=== PATIENT | female | born 1940 | race Caucasian/White ===

== ENCOUNTER 2019-04-12 11:46 | Emergency (ER) | payer MEDICARE ==
--- NOTE | 2019-04-12 11:56 | EDM.PDOC ---
ED HPI GENERAL MEDICAL PROBLEM - General Chief Complaint: Upper Extremity Injury/Pain Stated Complaint: FELL ON ICE AND HURT ARM/SHOULDER Time Seen by Provider: 04/12/19 11:51 Source of Information: Reports: Patient History Limitations: Reports: No Limitations - History of Present Illness INITIAL COMMENTS - FREE TEXT/NARRATIVE: 78 YO WF presents to ER complaining of right shoulder pain after a slip and fall outside her home today. Pt reports she landed on her right side but denies head or neck injury or pain. Pt able to ambulate into ER without difficulty. Pt reports pain is directly to right shoulder, but radiates down her arm to just above her elbow. Pt able to pronate and supine her wrist and forearm without pain. Pt able to flex and extend elbow without difficulty. Pt denies any other injury. Onset: Today Location: Reports: Upper Extremity, Right Quality: Reports: Ache Severity: Mild Improves with: Reports: Rest Worsens with: Reports: Movement Context: Reports: Activity Associated Symptoms: Reports: No Other Symptoms Right Shoulder Pain Score (Numeric/FACES): 8 - Related Data Allergies Allergy/AdvReac Type Severity Reaction Status Date / Time cephalexin Allergy Joint Pain Verified 04/12/19 12:05 Penicillins Allergy Rash Verified 04/12/19 12:05 venlafaxine HCl Allergy Rash Verified 04/12/19 12:05 [From Effexor] Home Meds: Home Meds Latanoprost 1 drop EYEBOTH BEDTIME 11/13/15 [History] Losartan [Cozaar] 25 mg PO QPM 11/13/15 [History] Vitamin D3 2,000 units PO DAILY 11/13/15 [History] Propranolol [Inderal] 10 mg PO BID 04/12/19 [History] Sertraline [Zoloft] 50 mg PO DAILY 04/12/19 [History] traMADol [Ultram] 50 mg PO Q6H PRN #10 tab 04/12/19 [Rx] Past Medical History Cardiovascular History: Reports: Hypertension Psychiatric History: Reports: Anxiety, Depression Review of Systems - Review of Systems Review Of Systems: See Below Constitutional: Reports: No Symptoms Eyes: Reports: No Symptoms Ears: Reports: No Symptoms Nose: Reports: No Symptoms Mouth/Throat: Reports: No Symptoms Respiratory: Reports: No Symptoms Cardiovascular: Reports: No Symptoms GI/Abdominal: Reports: No Symptoms Genitourinary: Reports: No Symptoms Musculoskeletal: Reports: Shoulder Pain, Arm Pain. Denies: Neck Pain, Back Pain , Hand Pain, Leg Pain, Foot Pain Skin: Reports: No Symptoms Neurological: Reports: No Symptoms Psychiatric: Reports: No Symptoms ED EXAM, GENERAL - Physical Exam Exam: See Below Exam Limited By: No Limitations General Appearance: Alert, WD/WN, No Apparent Distress Head: Atraumatic, Normocephalic Neck: Normal Inspection, Supple, Non-Tender, Full Range of Motion Respiratory/Chest: No Respiratory Distress, Lungs Clear, Normal Breath Sounds, No Accessory Muscle Use, Chest Non-Tender Cardiovascular: Normal Peripheral Pulses, Regular Rate, Rhythm, No Edema, No Gallop, No JVD, No Murmur, No Rub GI/Abdominal: Normal Bowel Sounds, Soft, Non-Tender, No Organomegaly, No Distention, No Abnormal Bruit, No Mass Back Exam: Normal Inspection, Full Range of Motion, NT Extremities: No Pedal Edema, Normal Capillary Refill, Other (right head of humerus painful. right shoulder painful with ARM/PROM) Neurological: Alert, Oriented, CN II-XII Intact, Normal Cognition, Normal Gait, Normal Reflexes, No Motor/Sensory Deficits Psychiatric: Normal Affect, Normal Mood Skin Exam: Warm, Dry, Intact, Normal Color, No Rash Lymphatic: No Adenopathy ED TRAUMA EXTREMITY PROCEDURES - Splinting Right Upper Extremity Pre-Procedure NV Status: Normal Post-Procedure NV Status: Normal Splint Material: Sling Provider Post-Splint Application NV Check: NV Status Normal, Good Position Complications: No Course - Vital Signs Last Recorded V/S: Last Vital Signs Temp 37.2 C 04/12/19 11:59 Pulse 75 04/12/19 11:59 Resp 18 04/12/19 11:59 BP 184/93 H 04/12/19 11:59 Pulse Ox 95 04/12/19 11:59 - Orders/Labs/Meds Orders: Active Orders 24 hr Category Date Time Status Humerus Rt [CR] Stat Exams 04/12/19 11:55 Ordered Shoulder Comp Rt [CR] Stat Exams 04/12/19 11:55 Ordered - Radiology Interpretation Free Text/Narrative:: right shoulder- humeral neck fracture Departure - Departure Time of Disposition: 12:27 Disposition: Home, Self-Care 01 Condition: Good Clinical Impression: Proximal humeral fracture Qualifiers: Encounter type: initial encounter Fracture type: closed Fracture alignment: nondisplaced Laterality: right - Discharge Information Prescriptions: traMADol [Ultram] 50 mg PO Q6H PRN #10 tab PRN Reason: Pain Instructions: Humerus Fracture Treated With Immobilization, [id number] Forms: ED Department Discharge Additional Instructions: 1. discharge home 2. rest/ice/sling/motrin 400mg every 6 hours and tramadol every 6 hours as needed for pain 3. follow up with Dr Anabel Reis as soon as possible for further evaluation and treatment 4. return to ER for worsening symptoms Sepsis Event Note - Focused Exam Vital Signs: Vital Signs Temp Pulse Resp BP Pulse Ox 04/12/19 11:59 37.2 C 75 18 184/93 H 95 Date Exam was Performed: 04/12/19 Time Exam was Performed: 12:12 - My Orders Last 24 Hours: My Active Orders 04/12/19 11:55 Humerus Rt [CR] Stat Shoulder Comp Rt [CR] Stat - Assessment/Plan Last 24 Hours: My Active Orders 04/12/19 11:55 Humerus Rt [CR] Stat Shoulder Comp Rt [CR] Stat Assessment:: 1. right humeral head fracture Plan: 1. discharge home 2. rest/ice/sling/motrin 400mg every 6 hours and tramadol every 6 hours as needed for pain 3. follow up with Dr Anabel Reis as soon as possible for further evaluation and treatment 4. return to ER for worsening symptoms
[2019-04-12 12:05] VITALS: BP 184/93; PULSE 75
--- NOTE | 2019-04-12 12:30 | CR ---
[id number] RAD/RAD Shoulder Right 2V Min Exam: RAD Shoulder Right 2V Min Indication:FELL ON ICE, PAIN. Comparison: No prior imaging for comparison. Discussion: Acute nondisplaced mildly comminuted fracture of the proximal humerus. Fracture lines extend into the humeral head at the greater tuberosity. No evidence of a dislocation. No other fractures are identified. Mineralized material projects over the rotator cuff, possibly calcific tendinopathy. Impression: Acute comminuted nondisplaced minimally angulated fracture of the proximal humerus centered at the surgical neck extending into the humeral head and greater tuberosity. Vincent Bird MD 04/12/19 [id number] Thank you for allowing us to participate in the care of your patient.
== END 2019-04-12 13:00 | disposition home or self-care (01) ==
LOC: KA.ED 11:46
DX: S42.214A Unspecified nondisplaced fracture of surgical neck of right humerus, initial encounter for closed fracture (principal); W00.0XXA Fall on same level due to ice and snow, initial encounter; I10 Essential (primary) hypertension; F41.9 Anxiety disorder, unspecified; F32.9 Major depressive disorder, single episode, unspecified; Z88.1 Allergy status to other antibiotic agents; Z88.0 Allergy status to penicillin; Z88.8 Allergy status to other drugs, medicaments and biological substances; Z79.899 Other long term (current) drug therapy
CPT/HCPCS: 73030-RT; 99283; 99283-25

== ENCOUNTER 2020-06-07 10:47 | Emergency (ER) | payer MEDICARE ==
--- NOTE | 2020-06-07 11:10 | EDM.PDOC ---
ED HPI GENERAL MEDICAL PROBLEM - General Chief Complaint: Chest Pain Stated Complaint: CHEST PAIN Time Seen by Provider: 06/07/20 11:09 Source of Information: Reports: Patient History Limitations: Reports: No Limitations - History of Present Illness INITIAL COMMENTS - FREE TEXT/NARRATIVE: Melvina, 79-year-old female, presents to emergency department today for evaluation of chest pain with some radiation upwards to the left. She states this is been ongoing for quite some time, but today when she awoke, it was the most prominent that it had been in some time. She states it was possibly a 5 or 6 on a scale of 10. She did not take anything nor supplement anything with pain becoming very minimal as the morning progressed, and now is virtually gone with her presentation to the emergency department. She has history of high anxiety concerns with PRN anxiolytic, uses very seldom. States "Not liking to take medications." She has a past history of cardiac complaints which led to the initiation of a stress test via treadmill here in [place]. "During the procedure Dr. Diane Shepherd stopped the procedure and sent her to [place] for a non-treadmill test." She completed that and was not found to have any coronary artery disease of concern. She states she has had some occasional edema concerns that she had mentioned at the clinic but not did not have any change in treatment initiated. She states her ankles feet are always back to normal status upon awakening in the morning. She denies waking up during the night with any respiratory concerns or shortness of breath. She denies any recent illness, no change in diet or activity, and has not had any known COVID-19 exposures. She has had no fever chills, cough, or general malaise associated with those factors. Duration: Day(s):, Week(s): Location: Reports: Chest Left Chest Pain Score (Numeric/FACES): 6 - Related Data Allergies Allergy/AdvReac Type Severity Reaction Status Date / Time cephalexin Allergy Joint Pain Verified 06/07/20 11:08 Penicillins Allergy Rash Verified 06/07/20 11:08 venlafaxine HCl Allergy Rash Verified 06/07/20 11:08 [From Effexor] Home Meds: Home Meds Latanoprost 1 drop EYEBOTH BEDTIME 11/13/15 [History] Losartan [Cozaar] 25 mg PO QPM 11/13/15 [History] Vitamin D3 2,000 units PO DAILY 11/13/15 [History] Propranolol [Inderal] 10 mg PO BID 04/12/19 [History] Sertraline [Zoloft] 50 mg PO DAILY 04/12/19 [History] traMADol [Ultram] 50 mg PO Q6H PRN #10 tab 04/12/19 [Rx] Past Medical History HEENT History: Reports: Glaucoma Cardiovascular History: Reports: High Cholesterol, Hypertension Respiratory History: Reports: None Gastrointestinal History: Reports: GERD Psychiatric History: Reports: Anxiety, Depression Endocrine/Metabolic History: Reports: Other (See Below) (chronic hyponatremia) Dermatologic History: Reports: Other (See Below) (shingles tinea) Social & Family History - Family History Family Medical History: No Pertinent Family History - Tobacco Use Tobacco Use Status *Q: Former Tobacco User Tobacco Use Within Last Twelve Months: No Used Tobacco, but Quit: Yes - Caffeine Use Caffeine Use: Reports: None ED ROS GENERAL - Review of Systems Review Of Systems: Comprehensive ROS is negative, except as noted in HPI. ED EXAM, GENERAL - Physical Exam Exam: See Below Free Text/Narrative:: Alert, oriented, in no acute distress. There is no cyanosis nor pallor noted. HEENT is negative discharge or deformity. She has up plate in with no irritation, her lower bridge has not been placed today. She denies any discomfort with them. Her neck is soft and supple with no lymphadenopathy nor JVD. There is no carotid bruit auscultated. No rigidity appreciated. Thorax is clear throughout with no wheezes nor crackles. Cardiac is S1-S2 I do not appreciate any murmur. Occasional ectopic beat is appreciated with radial pulse correlating. Abdomen is soft bowel sounds are present no tenderness nor organomegaly appreciated. There is no erythema or edema to the thorax, no point tenderness. Lower extremities have +1 edema with skin warm and dry. #1 Interpretation EKG Date: 06/07/20 Time: 10:57 Rhythm: NSR Rate (Beats/Min): 66 ( PAC's) [place]: Normal P-Wave: Present QRS: Normal ST-T: Normal QT: Normal Comparison: NA - No Prior EKG (unable to view [facility] EKG) Course - Vital Signs Last Recorded V/S: Last Vital Signs Temp 97.5 F 06/07/20 14:00 Pulse 67 02/20/21 17:29 Resp 14 06/07/20 17:29 BP 140/73 06/07/20 17:29 Pulse Ox 98 06/07/20 17:29 - Orders/Labs/Meds Orders: Active Orders 24 hr Category Date Time Status EKG Documentation Completion [RC] ASDIRECTED Care 06/07/20 11:00 Active EKG 12 Lead [EK] Stat Ther 06/07/20 10:59 Ordered Labs: Laboratory Tests 06/07/20 06/07/20 06/07/20 Range/Units 11:10 11:10 11:10 WBC 3.51 L (5.00-10.00) 10^3/uL RBC 4.24 (3.80-5.50) 10^6/uL Hgb 12.8 (12.0-16.0) g/dL Hct 38.5 (37.0-47.0) % MCV 90.8 D (82.0-92.0) fL MCH 30.2 (27.0-31.0) pg MCHC 33.2 (32.0-36.0) g/dL RDW 12.7 (11.5-14.5) % Plt Count 242 (150-400) 10^3/uL MPV 10.2 (7.4-10.4) fL Sodium 135 L (136-145) mmol/L Potassium 3.8 (3.5-5.1) mmol/L Chloride 97 L (98-107) mmol/L Carbon Dioxide 31.7 (21.0-32.0) mmol/L Anion Gap 10.1 (5-15) mmol/L BUN 10 (7-18) mg/dL Creatinine 0.73 (0.51-1.17) mg/dL Est Cr Clr Drug Dosing 43.41 mL/min Estimated GFR (MDRD) > 60 mL/min Glucose 92 (70-140) mg/dL Calcium 9.2 (8.7-10.3) mg/dL Total Bilirubin 0.5 (0.2-1.0) mg/dL AST 20 (15-37) U/L ALT 23 (14-63) U/L Alkaline Phosphatase 101 (46-116) U/L CK-MB (CK-2) 0.57 (0.00-3.60) ng/mL Troponin I < 0.017 (0.000-0.056) ng/mL B-Natriuretic Peptide 85 (0-100) pg/mL Total Protein 6.9 (6.4-8.2) g/dL Albumin 3.71 (3.40-5.00) g/dL 06/07/20 Range/Units 17:10 WBC (5.00-10.00) 10^3/uL RBC (3.80-5.50) 10^6/uL Hgb (12.0-16.0) g/dL Hct (37.0-47.0) % MCV (82.0-92.0) fL MCH (27.0-31.0) pg MCHC (32.0-36.0) g/dL RDW (11.5-14.5) % Plt Count (150-400) 10^3/uL MPV (7.4-10.4) fL Sodium (136-145) mmol/L Potassium (3.5-5.1) mmol/L Chloride (98-107) mmol/L Carbon Dioxide (21.0-32.0) mmol/L Anion Gap (5-15) mmol/L BUN (7-18) mg/dL Creatinine (0.51-1.17) mg/dL Est Cr Clr Drug Dosing mL/min Estimated GFR (MDRD) mL/min Glucose (70-140) mg/dL Calcium (8.7-10.3) mg/dL Total Bilirubin (0.2-1.0) mg/dL AST (15-37) U/L ALT (14-63) U/L Alkaline Phosphatase (46-116) U/L CK-MB (CK-2) (0.00-3.60) ng/mL Troponin I < 0.017 (0.000-0.056) ng/mL B-Natriuretic Peptide (0-100) pg/mL Total Protein (6.4-8.2) g/dL Albumin (3.40-5.00) g/dL Meds: Medications Discontinued Medications Generic Name Dose Route Start Last Admin Trade Name Freq PRN Reason Stop Dose Admin Alprazolam 0.125 mg 06/07/20 13:07 06/07/20 13:24 Xanax PO 06/07/20 13:08 0.125 mg NOW ONE Administration - Re-Assessments/Exams Free Text/Narrative Re-Assessment/Exam: 06/07/20 12:58 Discussed all of the negative, or normal findings of her work-up here today. She questions why she still has a slight feeling in her chest. I discussed in detail with Rajeev Quintero situation and findings with both of us agreeing that there is no pertinent findings for admission per Medicare standards at this time. We do both agree that we could keep her as an extended ER with a repeat troponin in 6 hours. If that test was negative we could safely say she has ruled out completely since the event of the discomfort has been ongoing for days if not weeks. In the event testing was positive consideration for admission observation versus acute or consultation with cardiology services would be given. We explained this to Melvina who is in agreements to spend the afternoon here with a repeat troponin post 6-hour test. Free Text/Narrative Re-Assessment/Exam: 06/07/20 17:37 Has rested comfortably taking a very good nap and states she is feeling well at this time. Lungs are clear no distress no discomfort acknowledged. Heart rate is maintained as well as blood pressure throughout this extended emergency department stay. Departure - Departure Time of Disposition: 17:47 Disposition: Home, Self-Care 01 Condition: Good Clinical Impression: Anxiety, Atypical chest pain, Chronic leukopenia HTN (hypertension) Qualifiers: Hypertension type: essential hypertension Qualified Code(s): I10 - Essential (primary) hypertension - Discharge Information *PRESCRIPTION DRUG MONITORING PROGRAM REVIEWED*: Not Applicable *COPY OF PRESCRIPTION DRUG MONITORING REPORT IN PATIENT JIHAN: Not Applicable Instructions: Nonspecific Chest Pain, Adult Referrals: Hope Pope NP [Primary Care Provider] - Forms: ED Department Discharge Additional Instructions: Testing today as proven negative for heart involvement. Your chest x-ray as well as lab work of ruled out any evidence of congestive heart failure. You need to follow-up with your clinic to discuss with your provider the potential for changing your anxiety medicine. It may be that dosing adjustment or the actual change of medication considering the time you have been taking it and the fact you are still experiencing some anxiety would be beneficial. Continue all of your medications as directed at this time. You may take your Xanax at bedtime like you previously have to assist with your sleep as well as reduction of anxiety to allow you to better sleep. Call or return to the emergency department if concerns develop over the weekend, and call the clinic Tuesday, to arrange an appointment in the upcoming week to discuss your medications as well as the event this weekend. Sepsis Event Note (ED) - Evaluation Sepsis Screening Result: No Definite Risk - Focused Exam Vital Signs: Vital Signs Temp Pulse Resp BP Pulse Ox 06/07/20 17:29 67 14 140/73 98 06/07/20 14:00 97.5 F 70 16 144/75 H 95 06/07/20 11:52 91 14 163/83 H 97 06/07/20 11:04 96.7 F L 93 16 167/89 H 95 - Problem List & Annotations (1) Atypical chest pain SNOMED Code(s): 097070284 Code(s): R07.89 - OTHER CHEST PAIN Status: Acute Priority: High Current Visit: Yes (2) Anxiety SNOMED Code(s): 04773889 Code(s): F41.9 - ANXIETY DISORDER, UNSPECIFIED Status: Chronic Priority: Medium Current Visit: Yes (3) Hypochloremia SNOMED Code(s): 06678122 Code(s): E87.8 - OTH DISORDERS OF ELECTROLYTE AND FLUID BALANCE, NEC Status: Chronic Priority: Medium Current Visit: Yes (4) Chronic leukopenia SNOMED Code(s): 11809097 Code(s): D72.819 - DECREASED WHITE BLOOD CELL COUNT, UNSPECIFIED Status: Chronic Priority: Medium Current Visit: Yes - Problem List Review Problem List Initiated/Reviewed/Updated: Yes - My Orders Last 24 Hours: My Active Orders 06/07/20 10:59 EKG 12 Lead [EK] Stat 06/07/20 11:00 EKG Documentation Completion [RC] ASDIRECTED - Assessment/Plan Last 24 Hours: My Active Orders 06/07/20 10:59 EKG 12 Lead [EK] Stat 06/07/20 11:00 EKG Documentation Completion [RC] ASDIRECTED Plan: Testing today as proven negative for heart involvement. Your chest x-ray as well as lab work of ruled out any evidence of congestive heart failure. You need to follow-up with your clinic to discuss with your provider the potential for changing your anxiety medicine. It may be that dosing adjustment or the actual change of medication considering the time you have been taking it and the fact you are still experiencing some anxiety would be beneficial. Continue all of your medications as directed at this time. You may take your Xanax at bedtime like you previously have to assist with your sleep as well as reduction of anxiety to allow you to better sleep. Call or return to the emergency department if concerns develop over the weekend, and call the clinic Tuesday, to arrange an appointment in the upcoming week to discuss your medications as well as the event this weekend.
[2020-06-07 11:45] LABS: ANION GAP 10.1 mmol/L (5-15); CHLORIDE,CL 97 mmol/L (98-107); SODIUM,NA 135 mmol/L (136-145)
--- NOTE | 2020-06-07 11:48 | CR ---
[id number] RAD/RAD Chest PA And Lateral EXAM: RAD Chest PA And Lateral INDICATION: CHEST PAIN. COMPARISON: May 24, 2009. DISCUSSION: Cardiomediastinal silhouette is stable in size and contour. No infiltrate, effusion, pneumothorax, or edema. Pulmonary hyperinflation. IMPRESSION: No acute cardiopulmonary abnormality. George Valles DO 06/07/20 1147 Thank you for allowing us to participate in the care of your patient.
[2020-06-07] MEDS: ALPRAZolam 0.25 MG Tab PO ONE (13:24)
[2020-06-07 17:29] VITALS: BP 140/73; PULSE 67
== END 2020-06-07 18:00 | disposition home or self-care (01) ==
LOC: KA.ED 10:47
DX: F41.9 Anxiety disorder, unspecified (principal); D72.819 Decreased white blood cell count, unspecified; I10 Essential (primary) hypertension; Z79.899 Other long term (current) drug therapy; Z87.891 Personal history of nicotine dependence; Z88.1 Allergy status to other antibiotic agents; Z88.0 Allergy status to penicillin; Z88.8 Allergy status to other drugs, medicaments and biological substances
CPT/HCPCS: 36415; 71046; 80053; 82553; 83880; 84484; 85027; 93005; 99284; 99285-25; A9270-GY

== ENCOUNTER 2020-12-11 19:55 | Emergency (ER) | payer MEDICARE ==
[2020-12-11] MEDS ORDERED: Acetaminophen 500 MG Tab PO ONE (20:59)
[2020-12-11 21:00] LABS: ANION GAP 13.1 mmol/L (5-15); CHLORIDE,CL 97 mmol/L (98-107); SODIUM,NA 137 mmol/L (136-145)
[2020-12-11] MEDS ORDERED: ALPRAZolam 0.25 MG Tab PO ONE (21:20)
--- NOTE | 2020-12-11 21:52 | EDM.PDOC ---
ED HPI GENERAL MEDICAL PROBLEM - General Chief Complaint: General Stated Complaint: hypertension, dizziness Time Seen by Provider: 12/11/20 20:15 Source of Information: Reports: Patient History Limitations: Reports: No Limitations - History of Present Illness INITIAL COMMENTS - FREE TEXT/NARRATIVE: 80-year-old female presents emergency room with complaints of elevated blood pressure and mild headache. Her symptoms began this evening. Her blood pressure has been elevated over the last couple weeks. She was seen by Natalia Zepeda nurse practitioner yesterday for blood pressure check. Her losartan 25 mg was increased to 50 mg daily and was asked to follow-up in 2 weeks. Patient was on hydrochlorothiazide previously and stopped this on her own. Not like the side effects of frequent urination. She did discuss this with her primary care at her last months visit. They elected to increase her losartan yesterday as her blood pressures were elevating. In addition she has a history of anxiety and decided also quit her Xanax. Family member that accompanies her states that she does have quite frequent anxiety. She is not currently experiencing any chest pain or shortness of breath. She just took her losartan this evening about an hour prior to her arrival. He was taking her blood pressures at home checking it every 5 minutes. She became concerned when she had a blood pressure reading 200/100. She now presents to the emergency room. She states that she has been having some in addition frequency urination with we will check her urine today to make sure that there is no underlying a UTI. She denies any visual changes no history of a kidney disease. No history of stroke. No previous IN. Onset: Gradual, Unknown/Unsure Duration: Getting Worse Location: Reports: Head Quality: Reports: Ache Severity: Mild Improves with: Reports: None Treatments SECTION BEAMER: Reports: Acetaminophen - Related Data Allergies Allergy/AdvReac Type Severity Reaction Status Date / Time cephalexin Allergy Joint Pain Verified 12/11/20 20:06 Penicillins Allergy Rash Verified 12/11/20 20:06 venlafaxine HCl Allergy Rash Verified 12/11/20 20:06 [From Effexor] Home Meds: Home Meds Losartan [Cozaar] 50 mg PO QPM 11/13/15 [History] Vitamin D3 2,000 units PO DAILY 11/13/15 [History] Sertraline [Zoloft] 50 mg PO DAILY 04/12/19 [History] Acetaminophen 325 mg PO Q4H PRN 12/11/20 [History] Docusate Sodium [Colace] 100 mg PO BEDTIME PRN 12/11/20 [History] Ibuprofen 200 mg PO Q4H PRN 12/11/20 [History] Ketoconazole [Ketoconazole 2%] 1 applic TOP DAILY PRN 12/11/20 [History] Multivitamin [Multiple Vitamins] 2 each PO DAILY 12/11/20 [History] Vit C/E/Zn/Coppr/Lutein/Zeaxan [Preservision Areds 2 Softgel] 1 each PO DAILY 12/11/20 [History] Past Medical History HEENT History: Reports: Glaucoma Cardiovascular History: Reports: High Cholesterol, Hypertension Respiratory History: Reports: None Gastrointestinal History: Reports: GERD Psychiatric History: Reports: Anxiety, Depression Endocrine/Metabolic History: Reports: Other (See Below) (chronic hyponatremia) Dermatologic History: Reports: Other (See Below) (shingles tinea) Social & Family History - Family History Family Medical History: No Pertinent Family History - Tobacco Use Tobacco Use Status *Q: Former Tobacco User Used Tobacco, but Quit: No - Caffeine Use Caffeine Use: Reports: None - Recreational Drug Use Recreational Drug Use: No ED ROS GENERAL - Review of Systems Review Of Systems: See Below Constitutional: Reports: No Symptoms. Denies: Diaphoresis HEENT: Reports: Glasses. Denies: Vertigo, Vision Change Respiratory: Denies: Shortness of Breath Cardiovascular: Reports: Blood Pressure Problem, Lightheadedness. Denies: Chest Pain, Dyspnea on Exertion, Edema, Palpitations, Syncope Endocrine: Reports: No Symptoms GI/Abdominal: Reports: No Symptoms : Reports: Frequency. Denies: Dysuria, Hematuria Musculoskeletal: Reports: No Symptoms Skin: Reports: No Symptoms Neurological: Reports: Dizziness, Headache. Denies: Numbness, Paresthesia, Syncope, Trouble Speaking, Difficulty Walking, Weakness, Change in Speech, Gait Disturbance Psychiatric: Reports: Anxiety Hematologic/Lymphatic: Reports: No Symptoms Immunologic: Reports: No Symptoms ED EXAM, GENERAL - Physical Exam Exam: See Below Exam Limited By: No Limitations General Appearance: Alert, No Apparent Distress, Thin Eye Exam: Bilateral Eye: EOMI, PERRL Ears: Hearing Grossly Normal Nose: Normal Inspection Throat/Mouth: Normal Inspection, Normal Oropharynx, Normal Voice, No Airway Co mpromise Head: Atraumatic, Normocephalic Neck: Normal Inspection, Supple, Non-Tender, Full Range of Motion Respiratory/Chest: No Respiratory Distress, Lungs Clear, Normal Breath Sounds, No Accessory Muscle Use, Chest Non-Tender Cardiovascular: Regular Rate, Rhythm, No Murmur Peripheral Pulses: 2+: Carotid (L), Carotid (R), Radial (L), Radial (R), Dorsalis Pedis (L), Dorsalis Pedis (R) GI/Abdominal: Soft, Non-Tender Back Exam: Normal Inspection, Full Range of Motion Extremities: Normal Inspection, Normal Range of Motion, Non-Tender, No Pedal Edema Neurological: Alert, Oriented, CN II-XII Intact, Normal Cognition, No Motor/Sensory Deficits Psychiatric: Normal Affect, Anxious Skin Exam: Warm, Dry, Intact, Normal Color, No Rash Lymphatic: No Adenopathy #1 Interpretation EKG Date: 12/11/20 Time: 20:40 Rhythm: Other (Decelerated junctional rhythm) Rate (Beats/Min): 74 [place]: Normal P-Wave: Present QRS: Normal ST-T: Normal QT: Normal Comparison: NA - No Prior EKG EKG Interpretation Comments: Accelerated junctional rhythm Anterior infarct age undetermined Abnormal ECG Course - Vital Signs Last Recorded V/S: Last Vital Signs Temp 97.2 F 12/11/20 20:00 Pulse 78 12/11/20 20:00 Resp 20 12/11/20 20:00 BP 203/99 H 12/11/20 20:00 Pulse Ox 95 12/11/20 20:00 - Orders/Labs/Meds Orders: Active Orders 24 hr Category Date Time Status EKG 12 Lead [EK] Stat Ther 12/11/20 20:26 Ordered Labs: Laboratory Tests 12/11/20 12/11/20 12/11/20 Range/Units 20:35 20:35 21:20 Sodium 137 (136-145) mmol/L Potassium 4.3 (3.5-5.1) mmol/L Chloride 97 L (98-107) mmol/L Carbon Dioxide 31.2 (21.0-32.0) mmol/L Anion Gap 13.1 (5-15) mmol/L BUN 18 (7-18) mg/dL Creatinine 0.85 (0.51-1.17) mg/dL Est Cr Clr Drug Dosing TNP Estimated GFR (MDRD) > 60 mL/min Glucose 94 (70-140) mg/dL Calcium 8.7 (8.7-10.3) mg/dL Troponin I High Sens 7.700 (0-51.000) pg/mL Specimen Type Urincc Urine Color Yellow (YELLOW) Urine Appearance Clear (CLEAR) Urine pH 7.0 (5.0-9.0) Ur Specific [place] 1.015 (1.005-1.030) Urine Protein Negative (NEGATIVE) mg/dL Urine Glucose (UA) Negative (NEGATIVE) mg/dL Urine Ketones Negative (NEGATIVE) mg/dL Urine Occult Blood Negative (NEGATIVE) Urine Nitrite Negative (NEGATIVE) Urine Bilirubin Negative (NEGATIVE) Urine Urobilinogen 0.2 (0.2-1.0) E.U./dL Ur Leukocyte Esterase Small H (NEGATIVE) Urine RBC 0-5 (0-5) /HPF Urine WBC 0-5 (0-5) /HPF Ur Epithelial Cells Rare /LPF Urine Bacteria Not seen (NONE TO FEW) /HPF Meds: Medications Discontinued Medications Generic Name Dose Route Start Last Admin Trade Name Coleen PRN Reason Stop Dose Admin Acetaminophen 1,000 mg 12/11/20 20:59 12/11/20 21:25 Acetaminophen 500 Mg Tab PO 12/11/20 21:00 500 mg ONETIME ONE Administration Alprazolam 0.5 mg 12/11/20 21:20 12/11/20 21:25 Alprazolam 0.25 Mg Tab PO 12/11/20 21:21 0.5 mg ONETIME ONE Administration - Re-Assessments/Exams Free Text/Narrative Re-Assessment/Exam: 12/11/20 21:56 Room was lighting was lowered. Patient was talkative mildly anxious. She is in no acute distress. Not experiencing any chest pain or shortness of breath. She was given 500 mg of Tylenol for headache. She was given 0.5 mg Xanax and relaxing in exam room 1 trauma. Departure - Departure Time of Disposition: 22:46 Disposition: Home, Self-Care 01 Condition: Good Clinical Impression: Elevated blood pressure reading in office with diagnosis of hypertension, Anxiety, Noncompliance with medication regimen - Discharge Information Instructions: Hypertension, Adult, [id number], Managing Anxiety, Adult, Managing Your Hypertension Referrals: Natalia Medrano NP [Primary Care Provider] - Forms: ED Department Discharge Care Plan Goals: 1. Continue with your prescribed medications as ordered by your doctor. 2. Adjusting your blood pressure with new medication can sometimes take up to 2 weeks to show improvements. I would avoid checking your blood pressures multiple times a day. 3. I would discuss with your primary care about feeling anxious as you have recently discontinued the Xanax.. 4. I would call your primary care tomorrow and let them know that you were seen in the emergency room for elevated blood pressure which came down nicely with relaxation techniques. Blood pressure is currently 135/67 and I would not add or change anything currently to your hypertension medications. 5. If episodes of severe headache, visual changes, changes in speech or difficulty talking, drooping of the face, weakness in any extremity, chest pain, shortness of breath, jaw pain, nausea or vomiting associated with the above- mentioned or back pain I would encourage you to follow back to the emergency room for further work-up and evaluation. Sepsis Event Note (ED) - Evaluation Sepsis Screening Result: No Definite Risk - Focused Exam Vital Signs: Vital Signs Temp Pulse Resp BP Pulse Ox 12/11/20 20:00 97.2 F 78 20 203/99 H 95 - My Orders Last 24 Hours: My Active Orders 12/11/20 20:26 EKG 12 Lead [EK] Stat - Assessment/Plan Last 24 Hours: My Active Orders 12/11/20 20:26 EKG 12 Lead [EK] Stat Assessment:: Hypertension with previous noncompliance with abruptly stopping her hydrochlorothiazide. Elevated blood pressure losartan was increased to 50 mg daily Anxiety, recently stopped Xanax Plan: 1. Patient had her losartan increased to 50 mg daily just 24 hours ago. We discussed the importance of allowing the medication change to take effect. Recommend not repeating blood pressure checks multiple times throughout the day as it is less likely will create anxiousness and elevation of blood pressure. 2. Mild headache improved with Tylenol. 3. Recommend informing your primary care you were seen in the emergency room yesterday for blood pressure elevation keep your current follow-up with your primary care and continue with compliance of medication. 4. Change in symptoms to severe headache, chest pain, shortness of breath, abdominal pain, change in speech, weakness you should return to the emergency room immediately for further work-up and evaluation. 5. Your lab work BMP and troponin are normal. Blood pressures come down nicely in the ER.
[2020-12-12 01:50] VITALS: BP 139/76; PULSE 61
== END 2020-12-11 22:58 | disposition home or self-care (01) ==
LOC: KA.ED 19:55
DX: I10 Essential (primary) hypertension (principal); F41.9 Anxiety disorder, unspecified; Z91.19 Patient's noncompliance with other medical treatment and regimen; E78.00 Pure hypercholesterolemia, unspecified; K21.9 Gastro-esophageal reflux disease without esophagitis; Z88.0 Allergy status to penicillin; Z88.1 Allergy status to other antibiotic agents; Z87.891 Personal history of nicotine dependence; Z79.899 Other long term (current) drug therapy
CPT/HCPCS: 36415; 80048; 81001; 84484; 93005; 99284; A9270

== ENCOUNTER 2021-01-13 15:07 | Emergency (ER) | payer MEDICARE ==
[2021-01-13 15:24] VITALS: BP 164/83; PULSE 106
--- NOTE | 2021-01-13 16:17 | EDM.PDOC ---
ED HPI GENERAL MEDICAL PROBLEM - General Chief Complaint: Genitourinary Problem Stated Complaint: BLOOD IN URINE Time Seen by Provider: 01/13/21 16:00 Source of Information: Reports: Patient History Limitations: Reports: No Limitations - History of Present Illness INITIAL COMMENTS - FREE TEXT/NARRATIVE: Melvina, 80-year-old female, presents today with hematuria. She states that she awoke this morning feeling fine yielding a history of hematuria in the past 2 weeks where she was seen by her provider Hope Pope at the [facility] here in [place]. At that time there was a discussion over having urology consult which was declined by her at that time. She did a typical of the day yesterday and last night awakening this morning feeling fine then suddenly experiencing painless hematuria. She pushed fluids did not seem to make any benefit and presents this afternoon as she became concerned that it was not typical for her. She notes that it is been scheduled for an appointment tomorrow morning at 730 with Hope and is advised to continue that plan as she likely needs urology consult. She denies any symptoms such as lightheadedness dizziness palpitations or ma laise. She states she is concerned as it is recurred again. Onset: Today, Sudden Duration: Hour(s): Location: Reports: Pelvis - Related Data Allergies Allergy/AdvReac Type Severity Reaction Status Date / Time cephalexin Allergy Joint Pain Verified 01/13/21 18:01 Penicillins Allergy Rash Verified 01/13/21 18:01 venlafaxine HCl Allergy Rash Verified 01/13/21 18:01 [From Effexor] Home Meds: Home Meds Losartan [Cozaar] 50 mg PO QPM 11/13/15 [History] Vitamin D3 2,000 units PO DAILY 11/13/15 [History] Sertraline [Zoloft] 50 mg PO DAILY 04/12/19 [History] Acetaminophen 325 mg PO Q4H PRN 12/11/20 [History] Docusate Sodium [Colace] 100 mg PO BEDTIME PRN 12/11/20 [History] Ibuprofen 200 mg PO Q4H PRN 12/11/20 [History] Ketoconazole [Ketoconazole 2%] 1 applic TOP DAILY PRN 12/11/20 [History] Multivitamin [Multiple Vitamins] 2 each PO DAILY 12/11/20 [History] Vit C/E/Zn/Coppr/Lutein/Zeaxan [Preservision Areds 2 Softgel] 1 each PO DAILY 12/11/20 [History] Past Medical History HEENT History: Reports: Glaucoma Cardiovascular History: Reports: High Cholesterol, Hypertension Other Cardiovascular History: ectopic atrial rhythm Respiratory History: Reports: None Gastrointestinal History: Reports: GERD Other Gastrointestinal History: slow transit constipation Other Genitourinary History: pseudomonas UTI ASSISTANT DIRECTOR OF ADMISSIONS History: Reports: Other ASSISTANT DIRECTOR OF ADMISSIONS History: vaginal prolapse without uterine prolapse Musculoskeletal History: Reports: Back Pain, Chronic, Fracture Other Musculoskeletal History: closed fracture of head of right humerus (2019) Psychiatric History: Reports: Anxiety, Depression Endocrine/Metabolic History: Reports: Vitamin D Deficiency, Other (See Below) Other Endocrine/Metabolic History: Chronic hyponatremia Other Hematologic History: leukopenia (02/11/20) Oncologic (Cancer) History: Reports: Breast Dermatologic History: Reports: Other (See Below) Other Dermatologic History: tinea capitis - Infectious Disease History Infectious Disease History: Reports: Chicken Pox, Measles, Mumps, Novel Coronavirus, Shingles Other Infectious Disease History: Covid (2019). disseminated herpes zoster - Past Surgical History GI Surgical History: Reports: Appendectomy Female Surgical History: Reports: Hysterectomy Musculoskeletal Surgical History: Reports: Arthroscopic Knee Other Musculoskeletal Surgeries/Procedures:: 2011 - right knee arthroscopy Oncologic Surgical History: Reports: Lumpectomy Other Oncologic Surgeries/Procedures: right breast lumpectomy () Social & Family History - Family History Family Medical History: No Pertinent Family History - Tobacco Use Tobacco Use Status *Q: Never Tobacco User - Caffeine Use Caffeine Use: Reports: None - Recreational Drug Use Recreational Drug Use: No ED ROS GENERAL - Review of Systems Review Of Systems: Comprehensive ROS is negative, except as noted in HPI. ED EXAM, GENERAL - Physical Exam Exam: See Below Free Text/Narrative:: Alert oriented in no acute distress. HEENT is negative discharge or deformity. [place] moist mucous membranes Thorax is clear Cardiac regular No flank pain abdominal pain or pelvic pressure to palpation. She is somewhat hesitant with no urge to void and we wait roughly half hour to get urine sample. She is comfortable throughout the stay has no increase in her urination desire with no fullness nor difficulty encountered. Course - Vital Signs Last Recorded V/S: Last Vital Signs Temp 98.8 F 01/13/21 15:23 Pulse 106 H 01/13/21 15:23 Resp 16 01/13/21 15:23 BP 164/83 H 01/13/21 15:23 Pulse Ox 93 L 01/13/21 15:23 - Orders/Labs/Meds Labs: Laboratory Tests 01/13/21 Range/Units 15:40 Specimen Type Urincc Urine Color Red H (YELLOW) Urine Appearance Turbid H (CLEAR) Urine pH 6.0 (5.0-9.0) Ur Specific [place] 1.025 (1.005-1.030) Urine Protein >=300 H (NEGATIVE) mg/dL Urine Glucose (UA) Negative (NEGATIVE) mg/dL Urine Ketones Negative (NEGATIVE) mg/dL Urine Occult Blood Large H (NEGATIVE) Urine Nitrite Negative (NEGATIVE) Urine Bilirubin Negative (NEGATIVE) Urine Urobilinogen 0.2 (0.2-1.0) E.U./dL Ur Leukocyte Esterase Negative (NEGATIVE) Urine RBC Packed (0-5) /HPF Urine WBC 0-5 (0-5) /HPF Ur Epithelial Cells Few /LPF Urine Bacteria Few (NONE TO FEW) /HPF Urine Mucus Few H (NEGATIVE) /LPF - Re-Assessments/Exams Free Text/Narrative Re-Assessment/Exam: 01/13/21 20:19 I had a very thorough discussion with Melvina any aspects of painless hematuria that she needs to undergo a cystoscopy to see if there is a bladder polyp or lesion that is causing the bleeding. She states that this had been offered originally which she felt hesitant as she would have to leave town for the procedure. I do express my concern that this should not be avoided as there needs to be a conclusive test and answer obtained from it such as cystoscopy would likely provide. She does understand and agree with that and well follow-up tomorrow morning as scheduled with Hope Pope in the clinic. Departure - Departure Time of Disposition: 17:42 Disposition: Home, Self-Care 01 Condition: Good Clinical Impression: Hematuria - Discharge Information *PRESCRIPTION DRUG MONITORING PROGRAM REVIEWED*: Not Applicable *COPY OF PRESCRIPTION DRUG MONITORING REPORT IN PATIENT JIHAN: Not Applicable Referrals: Hope Pope, [employer] [Primary Care Provider] - Forms: ED Department Discharge Additional Instructions: You have blood in your urine with no evidence of infection. Make sure you drink as much water as possible tonight to keep clots from forming in your bladder. Continue all your medications as directed. Follow-up in the morning with the niece as scheduled as you will need a consult/referral to the urologist to undergo a cystoscopy. It is possible that you have a bladder polyp or a bladder cyst that is causing the bleeding. Make sure to stay well-hydrated Sepsis Event Note (ED) - Evaluation Sepsis Screening Result: No Definite Risk - Focused Exam Vital Signs: Vital Signs Temp Pulse Resp BP Pulse Ox 01/13/21 15:23 98.8 F 106 H 16 164/83 H 93 L - Problem List & Annotations (1) Hematuria SNOMED Code(s): 71663956 Code(s): R31.9 - HEMATURIA, UNSPECIFIED Status: Acute Priority: High Qualifiers: Hematuria type: unspecified type Qualified Code(s): R31.9 - Hematuria, unspecified - Problem List Review Problem List Initiated/Reviewed/Updated: Yes - Assessment/Plan Plan: You have blood in your urine with no evidence of infection. Make sure you drink as much water as possible tonight to keep clots from forming in your bladder. Continue all your medications as directed. Follow-up in the morning with Hope as scheduled as you will need a consult/referral to the urologist to undergo a cystoscopy. It is possible that you have a bladder polyp or a bladder cyst that is causing the bleeding. Make sure to stay well-hydrated.
== END 2021-01-13 17:55 | disposition home or self-care (01) ==
LOC: KA.ED 15:07
DX: R31.9 Hematuria, unspecified (principal); I10 Essential (primary) hypertension; Z88.1 Allergy status to other antibiotic agents; Z88.0 Allergy status to penicillin; Z88.8 Allergy status to other drugs, medicaments and biological substances; Z79.899 Other long term (current) drug therapy
CPT/HCPCS: 81001; 99283; 99284

== ENCOUNTER 2021-08-22 17:34 | Emergency (ER) | payer MEDICARE ==
[2021-08-22 18:02] VITALS: BP 119/89; PULSE 99
[2021-08-22] MEDS ORDERED: Azithromycin 250 MG Tab PO ONE (18:31)
== END 2021-08-22 18:50 | disposition home or self-care (01) ==
LOC: KA.ED 17:34
DX: L08.9 Local infection of the skin and subcutaneous tissue, unspecified (principal); I10 Essential (primary) hypertension; Z86.16 Personal history of COVID-19; Z90.49 Acquired absence of other specified parts of digestive tract; Z90.710 Acquired absence of both cervix and uterus; Z79.899 Other long term (current) drug therapy; Z88.0 Allergy status to penicillin; Z88.1 Allergy status to other antibiotic agents; Z88.8 Allergy status to other drugs, medicaments and biological substances
CPT/HCPCS: 99282; 99284; A9270-GY

== ENCOUNTER 2023-06-15 08:07 | Emergency (ER) | payer MEDICARE ==
[2023-06-15] MEDS ORDERED: Sodium Chloride 0.9% 10 ML Syringe FLUSH PRN (08:15)
[2023-06-15 08:20] VITALS: PULSE 78
[2023-06-15 08:28] LABS: BASOPHILS ABSOLUTE AUTO 0.03 10^3/uL (0.00-0.10); BASOPHILS PERCENT AUTO 0.7 % (0.0-1.0); EOSINOPHILS ABSOLUTE AUTO 0.12 10^3/uL (0.10-0.30); EOSINOPHILS PERCENT AUTO 2.8 % (1.0-3.0); HEMATOCRIT 43.3 % (37.0-47.0); HEMOGLOBIN 14.2 g/dL (12.0-16.0); LYMPHOCYTES ABSOLUTE AUTO 1.68 10^3/uL (1.00-4.00); LYMPHOCYTES PERCENT AUTO 38.7 % (20.0-40.0); MEAN CORPUSCULAR HEMOGLOBIN 28.7 pg (27.0-31.0); MEAN CORPUSCULAR HGB CONC 32.8 g/dL (32.0-36.0); MEAN CORPUSCULAR VOLUME 87.5 fL (82.0-92.0); MEAN PLATELET VOLUME 10.1 fL (7.4-10.4); MONOCYTES ABSOLUTE AUTO 0.44 10^3/uL (0.10-0.80); MONOCYTES PERCENT AUTO 10.1 % (2.0-8.0); NEUTROPHILS ABSOLUTE AUTO 2.07 10^3/uL (2.50-7.00); NEUTROPHILS PERCENT AUTO 47.7 % (50.0-70.0); PLATELET COUNT,PLT 265 10^3/uL (150-400); RED BLOOD CELL COUNT 4.95 10^6/uL (3.80-5.50); RED CELL DISTRIBUTION WIDTH 12.6 % (11.5-14.5); WHITE BLOOD CELL COUNT,WBC 4.34 10^3/uL (5.00-10.00)
[2023-06-15 08:47] LABS: ALANINE AMINOTRANSFERASE,ALT 18 U/L (14-63); ALBUMIN 3.85 g/dL (3.40-5.00); ALKALINE PHOSPHATASE 108 U/L (46-116); ANION GAP 11.5 mmol/L (5-15); ASPARTATE AMNIOTRANSFERASE,AST 19 U/L (15-37); BILIRUBIN TOTAL 0.6 mg/dL (0.2-1.0); BLOOD UREA NITROGEN,BUN 12 mg/dL (7-18); CALCIUM 9.3 mg/dL (8.7-10.3); CARBON DIOXIDE,CO2 32.9 mmol/L (21.0-32.0); CHLORIDE,CL 96 mmol/L (98-107); GLUCOSE RANDOM 91 mg/dL (70-140); POTASSIUM,K 3.4 mmol/L (3.5-5.1); PROTEIN TOTAL,TP 7.4 g/dL (6.4-8.2); SODIUM,NA 137 mmol/L (136-145)
[2023-06-15 08:50] LABS: C-REACTIVE PROTEIN < 0.50 mg/dL (0.00-0.50); ESTIMATED GFR 73 mL/min (>=60); ETHANOL BLOOD MEDICAL < 3 mg/dL (NOT DETECTED)
[2023-06-15] MEDS: Losartan 25 MG Tab PO SCH ×2 (08:52→11:55)
[2023-06-15] MEDS: Sodium Chloride 0.9% 1,000 ML IV ONE ×2 (08:53→11:56)
[2023-06-15 08:55] LABS: B-TYPE NATRIURETIC PEPTIDE,BNP 77 pg/mL (0-100)
[2023-06-15] MEDS: LORazepam 2 MG/ML SDV IVPUSH ONE (08:58)
[2023-06-15 10:00] LABS: CORONAVIRUS COVID-19 NAA NEGATIVE (NEGATIVE); INFLUENZA A NAA NEGATIVE (NEGATIVE); INFLUENZA B NAA NEGATIVE (NEGATIVE); RESPIRATORY SYNCYTIAL VIR NAA NEGATIVE (NEGATIVE)
[2023-06-15 10:13] LABS: APPEARANCE,URINE CLEAR (CLEAR); BILIRUBIN,URINE NEGATIVE (NEGATIVE); COLOR,URINE YELLOW (YELLOW); GLUCOSE,URINE NEGATIVE (NEGATIVE); KETONES,URINE NEGATIVE (NEGATIVE); LEUKOCYTE ESTERASE,URINE TRACE (NEGATIVE); NITRITE,URINE NEGATIVE (NEGATIVE); OCCULT BLOOD,URINE NEGATIVE (NEGATIVE); PH,URINE 7.5 (5.0-9.0); PROTEIN,URINE NEGATIVE (NEGATIVE); UROBILINOGEN,URINE 0.2 E.U./dL (0.2-1.0)
[2023-06-15 10:23] LABS: RBC,URINE 0-5 /HPF (0-5)
[2023-06-15 10:24] LABS: BACTERIA,URINE RARE /HPF (NONE TO FEW); EPITHELIAL CELLS,URINE RARE /LPF; WBC,URINE 0-5 /HPF (0-5)
[2023-06-15 11:56] VITALS: BP 145/81
[2023-06-15] MEDS: Aspirin 81 MG Tab.Chew PO ONE (13:27)
[2023-06-15] MEDS: Aspirin 81 MG Tab.Chew ONE (13:33)
== END 2023-06-15 15:45 ==
LOC: KA.ED 08:07
DX: R27.0 Ataxia, unspecified (principal); R53.1 Weakness; F41.9 Anxiety disorder, unspecified; I10 Essential (primary) hypertension; E78.00 Pure hypercholesterolemia, unspecified; K21.9 Gastro-esophageal reflux disease without esophagitis; Z90.710 Acquired absence of both cervix and uterus; Z79.899 Other long term (current) drug therapy; Z79.82 Long term (current) use of aspirin
CPT/HCPCS: 0241U; 36415; 70450; 71045; 80053; 80307; 81001; 82550; 83880; 84484; 85025; 85730; 86140; 87086; 93005; 93010; 96361; 96374; 99284; 99285-25; A9270-GY; J2060; J7030

== ENCOUNTER 2024-02-18 13:19 | Emergency (ER) | payer MEDICARE ==
[2024-02-18] MEDS: fentaNYL 100 MCG/2 ML SDV IVPUSH ONE (13:55)
[2024-02-18] MEDS: Sodium Chloride 0.9% 1,000 ML IV ONE (14:32)
[2024-02-18] MEDS: Ondansetron 4 MG/2 ML SDV IVPUSH ONE (14:32)
[2024-02-18 15:02] VITALS: BP 151/84; PULSE 110
[2024-02-18] MEDS: Ketorolac 30 MG/ML SDV IVPUSH ONE (15:15)
[2024-02-18] MEDS: traMADol 50 MG Tab PO ONE (16:30)
== END 2024-02-18 16:40 | disposition home or self-care (01) ==
LOC: KA.ED 13:19
DX: S42.211A Unspecified displaced fracture of surgical neck of right humerus, initial encounter for closed fracture (principal); I10 Essential (primary) hypertension; Z86.16 Personal history of COVID-19; Z90.49 Acquired absence of other specified parts of digestive tract; Z90.710 Acquired absence of both cervix and uterus; Z79.899 Other long term (current) drug therapy; Z88.1 Allergy status to other antibiotic agents; Z88.0 Allergy status to penicillin; Z88.8 Allergy status to other drugs, medicaments and biological substances; W01.0XXA Fall on same level from slipping, tripping and stumbling without subsequent striking against object, initial encounter
CPT/HCPCS: 71101; 73030; 96361; 96374; 96375; 99283; A9270; J1885; J2405; J3010; J7030

== ENCOUNTER 2024-07-15 19:12 | Emergency (ER) | payer MEDICARE ==
[2024-07-15 19:43] LABS: BASOPHILS ABSOLUTE AUTO 0.03 10^3/uL (0.00-0.10); BASOPHILS PERCENT AUTO 0.6 % (0.0-1.0); EOSINOPHILS ABSOLUTE AUTO 0.23 10^3/uL (0.10-0.30); EOSINOPHILS PERCENT AUTO 4.7 % (1.0-3.0); HEMATOCRIT 38.4 % (37.0-47.0); HEMOGLOBIN 12.8 g/dL (12.0-16.0); LYMPHOCYTES ABSOLUTE AUTO 1.41 10^3/uL (1.00-4.00); LYMPHOCYTES PERCENT AUTO 29.1 % (20.0-40.0); MEAN CORPUSCULAR HEMOGLOBIN 29.3 pg (27.0-31.0); MEAN CORPUSCULAR HGB CONC 33.3 g/dL (32.0-36.0); MEAN CORPUSCULAR VOLUME 87.9 fL (82.0-92.0); MONOCYTES ABSOLUTE AUTO 0.49 10^3/uL (0.10-0.80); MONOCYTES PERCENT AUTO 10.1 % (2.0-8.0); NEUTROPHILS ABSOLUTE AUTO 2.69 10^3/uL (2.50-7.00); NEUTROPHILS PERCENT AUTO 55.5 % (50.0-70.0); PLATELET COUNT,PLT 249 10^3/uL (150-400); RED BLOOD CELL COUNT 4.37 10^6/uL (3.80-5.50); RED CELL DISTRIBUTION WIDTH 12.7 % (11.5-14.5); WHITE BLOOD CELL COUNT,WBC 4.85 10^3/uL (5.00-10.00)
[2024-07-15] MEDS: Labetalol 100 MG/20 ML MDV IVPUSH ONE ×3 (19:43→20:22)
[2024-07-15 19:54] LABS: ALBUMIN 3.81 g/dL (3.40-5.00); ANION GAP 8.1 mmol/L (5-15); BILIRUBIN TOTAL 0.4 mg/dL (0.2-1.0); CALCIUM 9.3 mg/dL (8.7-10.3); CARBON DIOXIDE,CO2 32.4 mmol/L (21.0-32.0); CREATININE 0.75 mg/dL (0.51-1.17); EST CRCL DRUG DOSING (CG) 39.39 mL/min; POTASSIUM,K 3.5 mmol/L (3.5-5.1); PROTEIN TOTAL,TP 7.1 g/dL (6.4-8.2)
[2024-07-15] MEDS: LORazepam 2 MG/ML SDV IVPUSH ONE (20:09)
[2024-07-15] MEDS: Losartan 50 MG Tab PO ONE (20:15)
[2024-07-15 21:46] VITALS: BP 110/58; PULSE 69
== END 2024-07-15 21:40 | disposition home or self-care (01) ==
LOC: KA.ED 19:12
DX: I10 Essential (primary) hypertension (principal); Z86.16 Personal history of COVID-19; Z90.49 Acquired absence of other specified parts of digestive tract; Z90.710 Acquired absence of both cervix and uterus; Z88.0 Allergy status to penicillin; Z88.8 Allergy status to other drugs, medicaments and biological substances; Z79.899 Other long term (current) drug therapy
CPT/HCPCS: 36415; 80053; 84484; 85025; 93010; 96374; 96375; 96376; 99284; 99285-25; A9270-GY; J1920; J2060